=== PATIENT | female | born 1975 | race Caucasian/White ===

== ENCOUNTER 2022-11-17 02:59 | Emergency (ER) | payer OTHER ==
[~2022-11-17] VITALS: Ht 170.2 cm; Wt 113.4 kg
[~2022-11-17 02:59] MED LIST: ALPR1 PO; AMOX1XR PO; AMPDEX30CR PO; CEPH500 PO; CLIN150 PO; CLON.1 PO; DICY20; DIPH50 PO; DULO30; DULO30 PO; FAMO40 PO; HYDACE5 PO; HYDHCL25 PO; LORA.5 PO; MEBE100 PO; METH10 PO; METH5 PO; MULVITMINE PO; NAPR550 PO; NEOPOLHYDS OT; OXYACE5T PO; OXYC10ER PO; OXYC15ER PO; OXYC30ER PO; PERM5TC TOP; PHENTERAMINE PO; RXHYDACE PO; RXNAPNA550 PO; RXTRAM50 PO; SULTRIDS PO; TOPI50 PO; TRAM50; TRAM50 PO
[2022-11-17 04:05] VITALS: BP 133/98
[2022-11-17] MEDS ORDERED: ALPRAZOLAM110 PO (04:08)
[2022-11-17] MEDS ORDERED: AMPDEX30CR (04:08)
[2022-11-17] MEDS ORDERED: AMPDEX30CR PO (06:40)
== END 2022-11-17 06:48 | disposition home or self-care (01) ==
LOC: ER 02:59
DX: Z76.0 Encounter for issue of repeat prescription (principal); I10 Essential (primary) hypertension; Z91.030 Bee allergy status; Z79.899 Other long term (current) drug therapy
CPT/HCPCS: 99281

== ENCOUNTER → 2023-04-05 | Outpatient (CLI) | payer OTHER ==
[~2023-04-05] MED LIST changes: +ALPRAZOLAM110 PO; +AMPDEX30CR
== END | disposition home or self-care (01) ==
LOC: LAB 15:13 → LAB SHORT 15:13
PROVIDERS: Nurse Practitioner Family
DX: Z51.81 Encounter for therapeutic drug level monitoring (principal); F90.1 Attention-deficit hyperactivity disorder, predominantly hyperactive type; F41.9 Anxiety disorder, unspecified; Z79.899 Other long term (current) drug therapy

== ENCOUNTER 2023-08-16 21:50 | Emergency (ER) | payer OTHER ==
[~2023-08-16] VITALS: Ht 167.6 cm; Wt 111.1 kg
[2023-08-16 21:59] VITALS: BP 160/71
[2023-08-16] MEDS ORDERED: Ketorolac Tromethamine 30mg Vial IM ONE (23:00)
[2023-08-17] MEDS ORDERED: AMOCLA875 PO (13:54)
[2023-08-17] MEDS ORDERED: EPIPEN0.3 MG/0.3 IM (13:54)
[2023-08-17] MEDS ORDERED: ACET500 PO (13:54)
[2023-08-17] MEDS ORDERED: IBUP600 PO (13:54)
== END 2023-08-16 23:15 | disposition home or self-care (01) ==
LOC: ER 21:50
DX: L02.811 Cutaneous abscess of head [any part, except face] (principal); Z91.030 Bee allergy status; Z79.899 Other long term (current) drug therapy; I10 Essential (primary) hypertension
CPT/HCPCS: 96372; 99283-25; J1885

== ENCOUNTER 2023-08-17 11:22 | Emergency (ER) | payer OTHER ==
[~2023-08-17] VITALS: Ht 167.6 cm; Wt 111.1 kg
[2023-08-17 11:35] VITALS: BP 159/96
[2023-08-17] MEDS ORDERED: Ketorolac Tromethamine 30mg Vial IV ONE (11:50)
[2023-08-17 12:29] LABS: BASOPHILS ABSOLUTE AUTO 0.04 K/mm3 (0.00-0.23); BASOPHILS PERCENT AUTO 0 % (0-2); EOSINOPHILS ABSOLUTE AUTO 0.11 K/mm3 (0.00-0.68); EOSINOPHILS PERCENT AUTO 1 % (0-6); Hematocrit 39.4 % (33.0-51.0); Hemoglobin 13.1 g/dL (11.5-16.0); IMMATURE GRAN ABSOLUTE AUTO 0.02 K/mm3 (0.00-0.10); IMMATURE GRAN PERCENT AUTO 0 % (0-1); LYMPHOCYTES ABSOLUTE AUTO 1.57 K/mm3 (0.84-5.20); LYMPHOCYTES PERCENT AUTO 17 % (21-46); MONOCYTES ABSOLUTE AUTO 0.87 K/mm3 (0.16-1.47); MONOCYTES PERCENT AUTO 9 % (4-13); Mean Corpuscular HGB 31.3 pg (26.0-34.0); Mean Corpuscular HGB Conc 33.2 g/dL (31.5-36.5); Mean Corpuscular Volume 94 fL (80-100); Mean Platelet Volume 9.9 fL (9.1-12.4); NEUTROPHILS ABSOLUTE AUTO 6.81 K/mm3 (1.96-9.15); NEUTROPHILS PERCENT AUTO 72 % (41-73); Platelet Count 256 K/mm3 (150-400); RDW Coefficient Variation 13.1 % (11.7-14.2); RDW Standard Deviation 45.1 fL (35.1-46.3); Red Blood Cell Count 4.19 M/mm3 (3.80-5.20); White Blood Cell Count 9.42 K/mm3 (4.00-11.30)
[2023-08-17 12:36] LABS: Albumin, Blood 3.1 g/dL (3.4-5.0); Albumin/Globulin Ratio 0.8 (0.8-1.8); Bilirubin, Total 0.7 mg/dL (0.1-1.0); Bun/Creatinine Ratio 24.8 (12.0-20.0); C-Reactive Protein, High Sens. 27.8 mg/dL (0.000-3.000); Calcium, Blood 8.6 mg/dL (8.5-10.1); Creatinine, Blood 0.69 mg/dL (0.40-1.00); Potassium, Blood 4.2 mmol/L (3.5-5.5); Total Protein, Blood 7.1 g/dL (6.4-8.2)
[2023-08-17] MEDS ORDERED: Amoxicillin/Clavulanate K 875 MG Tab PO ONE (13:25)
[2023-08-17] MEDS ORDERED: ACET500 PO (13:54)
[2023-08-17] MEDS ORDERED: IBUP600 PO (13:54)
[2023-08-17] MEDS ORDERED: AMOCLA875 PO (13:54)
[2023-08-17] MEDS ORDERED: EPIPEN0.3 MG/0.3 IM (13:54)
== END 2023-08-17 14:55 | disposition home or self-care (01) ==
LOC: ER 11:22
PROVIDERS: Student in an Organized Health Care Education/Training Program
DX: L03.211 Cellulitis of face (principal); L03.811 Cellulitis of head [any part, except face]; K04.7 Periapical abscess without sinus; L02.811 Cutaneous abscess of head [any part, except face]; I10 Essential (primary) hypertension; Z79.899 Other long term (current) drug therapy; Z91.030 Bee allergy status
CPT/HCPCS: 10060; 70470; 70487; 80053; 85025; 85651; 86141; 87070; 87075; 87077; 87147; 87186; 87205; 96374-59; 99285-25; A9270; J1885; Q9967

== ENCOUNTER 2024-12-02 22:33 | Emergency (ER) | payer OTHER ==
[~2024-12-02] VITALS: Ht 167.6 cm; Wt 113.4 kg
[~2024-12-02 22:33] MED LIST changes: +ACET500 PO; +AMOCLA875 PO; +EPIPEN0.3 MG/0.3 IM; +IBUP600 PO
[2024-12-02 22:56] VITALS: BP 143/98
[2024-12-02] MEDS ORDERED: Tetracaine HCl/Pf 0.5% Opth Soln 4 ml LEFTEYE SCH (23:55)
[2024-12-02] MEDS ORDERED: Fluorescein Sod 1MG Opth Strips LEFTEYE SCH (23:55)
[2024-12-03] MEDS ORDERED: Ketorolac Tromethamine 15mg Vial IV ONE (00:10)
[2024-12-03] MEDS ORDERED: CEFD300 PO (01:00)
[2024-12-03] MEDS ORDERED: Lidocaine/Tetracaine/Epinephr 3 ML GEL SYRINGE TOP ONE (01:40)
== END 2024-12-03 01:32 | disposition home or self-care (01) ==
LOC: ER 22:33
DX: H00.015 Hordeolum externum left lower eyelid (principal); Z59.89 Other problems related to housing and economic circumstances; Z91.030 Bee allergy status; Z79.899 Other long term (current) drug therapy
CPT/HCPCS: 96374; 99282-25; A9270; J1885